=== PATIENT | female | born 1965 | race Caucasian/White ===

== ENCOUNTER 2022-09-08 09:00 | Outpatient (CLI) | payer BC, SELFPAY ==
[2022-09-08 14:06] LABS: Albumin* 4.6 g/dL (3.3-5.0); Chloride* 105 mmol/L (96-114)
[2022-09-08 14:07] LABS: Potassium* 4.3 mmol/L (3.6-5.1); Sodium* 139 mmol/L (135-149)
[2022-09-08 14:09] LABS: Carbon Dioxide* 29 mmol/L (20-32); Cholesterol* 199 mg/dL (90-199); Creatinine* 0.8 mg/dL (0.5-1.5); Estimated Glomerular Filt Rate 86 ml/min; Total Protein* 7.8 g/dL (6.0-8.3)
[2022-09-08 14:10] LABS: Alanine Aminotransferase* 72 U/L (4-35); Alkaline Phosphatase* 71 U/L (40-150); Aspartate Amino Transferase* 59 U/L (12-35); Bilirubin Total* 1.1 mg/dL (0.1-1.5); Blood Urea Nitrogen* 19 mg/dL (7-30); Calcium* 9.2 mg/dL (8.4-10.6); Glucose* 82 mg/dL (60-115); HDL Cholesterol* 71 mg/dL (>=50); LDL Cholesterol Calculated 100 mg/dL (<100); Triglycerides* 140 mg/dL (40-149)
== END 2022-09-08 09:01 | disposition home or self-care (01) ==
PROVIDERS: PCP Physician Assistant Medical; Visit Provider Physician Assistant Medical
DX: Z00.00 Encounter for general adult medical examination without abnormal findings (principal); R79.89 Other specified abnormal findings of blood chemistry; R68.82 Decreased libido; Z13.0 Encounter for screening for diseases of the blood and blood-forming organs and certain disorders involving the immune mechanism; Z13.1 Encounter for screening for diabetes mellitus; Z13.6 Encounter for screening for cardiovascular disorders
CPT/HCPCS: 80053; 80061; 84443

== ENCOUNTER 2022-10-21 08:15 | Outpatient (RCR) | payer BC, SELFPAY | END 2023-02-16 23:59 | disposition home or self-care (01) | PROVIDERS: PCP Physician Assistant Medical; Visit Provider Physician Assistant Medical | DX: M25.552 Pain in left hip (principal); M25.551 Pain in right hip; M25.651 Stiffness of right hip, not elsewhere classified; M25.652 Stiffness of left hip, not elsewhere classified; Z51.89 Encounter for other specified aftercare | CPT/HCPCS: 97110; 97140; 97161 ==

== ENCOUNTER 2022-11-15 08:08 | Outpatient (CLI) | payer BC, SELFPAY ==
--- NOTE | 2022-11-15 08:15 | CRLHL7_ITS ---
For Patients: As a result of the Century Cures Act, medical imaging exams and procedure reports are released immediately into your electronic medical record. You may view this report before your referring provider. If you have questions, please contact your health care provider. BILATERAL SCREENING MAMMOGRAM WITH COMPUTER-AIDED DETECTION AND TOMOSYNTHESIS TECHNIQUE: CC and MLO views were obtained. These mammographic images have been obtained using full-field digital technique. These mammographic images were interpreted with the benefit of computer-aided detection. Breast Tomosynthesis was used in this interpretation. COMPARISON FILM: 12/01/20, 10/16/19, 04/06/16. FINDINGS: The breasts are heterogeneously dense, which may obscure small masses. IMPRESSION: There is no radiographic evidence for malignancy. ASSESSMENT: BI-RADS Category 1: Negative RECOMMENDATION: Routine screening mammogram in 1 year. A lay language report of this examination will be provided to the patient. Anurag Sears M.D. Diagnostic Radiologist [email or web address] JONG/[email or web address] Transcribed: 8:54 a.m. PT/Dictated by: Anurag Sears MD @ 11/15/2022 9:35:00 AM (Electronically Signed)
== END 2022-11-15 08:09 | disposition home or self-care (01) ==
LOC: MAMMO 08:09
PROVIDERS: PCP Physician Assistant Medical; Visit Provider Physician Assistant Medical
DX: Z12.31 Encounter for screening mammogram for malignant neoplasm of breast (principal); R92.2 Inconclusive mammogram
CPT/HCPCS: 77063; 77067

== ENCOUNTER 2023-01-27 09:39 | Outpatient (CLI) | payer BC, SELFPAY | END 2023-01-27 09:40 | disposition home or self-care (01) | LOC: NFLDREF 14:22 | PROVIDERS: PCP Physician Assistant Medical; Referring Provider Physician Assistant Medical; Visit Provider Physician Assistant Medical | DX: R79.89 Other specified abnormal findings of blood chemistry (principal) | CPT/HCPCS: 80076; 86703; 86803 ==

== ENCOUNTER 2023-02-23 09:54 | Outpatient (CLI) | payer BC, SELFPAY | END 2023-02-23 09:55 | disposition home or self-care (01) | PROVIDERS: PCP Physician Assistant Medical; Visit Provider Physician Assistant Medical | DX: R79.89 Other specified abnormal findings of blood chemistry (principal); D72.819 Decreased white blood cell count, unspecified | CPT/HCPCS: 80053; 86140; 87086 ==

== ENCOUNTER 2023-03-02 07:12 | Outpatient (CLI) | payer BC, SELFPAY ==
--- NOTE | 2023-03-02 07:15 | CRLHL7_ITS ---
For Patients: As a result of the Century Cures Act, medical imaging exams and procedure reports are released immediately into your electronic medical record. You may view this report before your referring provider. If you have questions, please contact your health care provider. INDICATION: Elevated LFTs COMPARISON: 02/05/2021 TECHNIQUE: Real time sauceda scale imaging and color Doppler analysis was performed of the right upper quadrant. FINDINGS: The patient`s liver is of normal size and has diffusely increased echogenicity. There is a normal appearance of the hepatic IVC and proximal abdominal aorta. There is no evidence of ascites. The gallbladder is of normal size and there is no evidence of intraluminal stones or sludge. The gallbladder wall measures 2 mm in thickness. The common bile duct is of normal size and measures 4 mm in diameter at the level of the elba hepatis. The pancreas appears normal. There is no evidence of a stone or hydronephrosis within the right kidney. The right kidney measures 10.6 cm in length. IMPRESSION: Diffuse hepatic steatosis, similar to the prior study. Dictated by Anurag Sears MD @ 03/02/2023 9:11:31 AM (Electronically Signed)
== END 2023-03-02 07:13 | disposition home or self-care (01) ==
LOC: US 07:13
PROVIDERS: PCP Physician Assistant Medical; Visit Provider Physician Assistant Medical
DX: R79.89 Other specified abnormal findings of blood chemistry (principal); K76.0 Fatty (change of) liver, not elsewhere classified
CPT/HCPCS: 76705

== ENCOUNTER 2023-03-30 08:14 | Outpatient (CLI) | payer BC, SELFPAY | END 2023-03-30 08:15 | disposition home or self-care (01) | PROVIDERS: PCP Physician Assistant Medical; Visit Provider Physician Assistant Medical | DX: R70.0 Elevated erythrocyte sedimentation rate (principal); R79.89 Other specified abnormal findings of blood chemistry; D72.819 Decreased white blood cell count, unspecified | CPT/HCPCS: 80053; 86039; 86140; 86431; 86812 ==

== ENCOUNTER 2023-11-30 09:09 | Outpatient (CLI) | payer BC, SELFPAY ==
--- NOTE | 2023-11-30 09:15 | MM_ITS ---
Patient: MEIR NICOLE Facility:?[facility] Patient ID:?[id number] Site Patient ID:?[id number]. Site :?[id number] Study:?XRay-Breast Bilateral 3D W/CAD-11/30/2023 9:28:53 AM Ordering Physician:Irma Final Report: BILATERAL SCREENING MAMMOGRAM WITH COMPUTER-AIDED DETECTION AND TOMOSYNTHESIS TECHNIQUE: CC and MLO views were obtained. These mammographic images have been obtained using full-field digital technique. These mammographic images were interpreted with the benefit of computer-aided detection. Breast Tomosynthesis was used in this interpretation. COMPARISON FILM: 11/15/22, 12/01/20, 10/16/19. FINDINGS: The breasts are heterogeneously dense, which may obscure small masses IMPRESSION: There is no radiographic evidence for malignancy. ASSESSMENT: BI-RADS Category 1: Negative RECOMMENDATION: Routine screening mammogram in 1 year. A lay language report of this examination will be provided to the patient. Anurag Sears M.D. Diagnostic Radiologist [email or web address] Transcribed: 1:48 p.mSeth dunlap/Dictated by: Anurag Sears MD @ 11/30/2023 12:40:00 PM Signed by:?Anurag Sears MD @11/30/2023 1:50:46 PM (Electronic Signature)
== END 2023-11-30 09:10 | disposition home or self-care (01) ==
LOC: MAMMO 09:09
PROVIDERS: PCP Physician Assistant Medical; Visit Provider Physician Assistant Medical
DX: Z12.31 Encounter for screening mammogram for malignant neoplasm of breast (principal); R92.2 Inconclusive mammogram
CPT/HCPCS: 77063; 77067

== ENCOUNTER 2023-12-07 13:58 | Outpatient (CLI) | payer BC, SELFPAY | END 2023-12-07 13:59 | disposition home or self-care (01) | PROVIDERS: PCP Physician Assistant Medical; Visit Provider Physician Assistant Medical | DX: R70.0 Elevated erythrocyte sedimentation rate (principal); R79.89 Other specified abnormal findings of blood chemistry; Z13.220 Encounter for screening for lipoid disorders | CPT/HCPCS: 80061; 82728; 85610; 85613; 85730; 86140; 86200 ==